=== PATIENT | male | born 1960 | race Caucasian/White ===

== ENCOUNTER 2020-01-28 03:05 | Emergency (ER) | payer MEDICAID ==
[~2020-01-28] VITALS: Ht 165.1 cm; Wt 81.6 kg
[2020-01-28 03:10] VITALS: BP 146/118
== END 2020-01-28 03:30 ==
LOC: MED 03:05
DX: F12.929 Cannabis use, unspecified with intoxication, unspecified (principal); F10.129 Alcohol abuse with intoxication, unspecified; F41.9 Anxiety disorder, unspecified; Z02.89 Encounter for other administrative examinations
CPT/HCPCS: 99283